=== PATIENT | male | born 1955 | race Caucasian/White ===

== ENCOUNTER 2019-09-19 19:12 | Inpatient (IN) | payer OTHER ==
[~2019-09-19] VITALS: Ht 170.2 cm; Wt 67.0 kg
[2019-09-19 19:16] VITALS: BP 175/95
[2019-09-19] MEDS ORDERED: LIPITOR 20 MG T20 M1 PO (19:22)
[2019-09-19] MEDS ORDERED: PREDNISONE 10 M10 MG PO (19:22)
[2019-09-19] MEDS ORDERED: LISINOPRIL2.5 MG PO (19:22)
[2019-09-19] MEDS ORDERED: ASA81BEC PO (19:23)
[2019-09-19 19:51] LABS: ABSOLUTE BASOPHILS 0.1 thou/uL (0.0-0.2); ABSOLUTE EOSINOPHILS 0.2 thou/uL (0.0-0.7); ABSOLUTE LYMPHOCYTES 2.2 thou/uL (0.8-5.3); ABSOLUTE MONOCYTES 1.3 thou/uL (0.0-1.2); ABSOLUTE NEUTROPHILS 8.6 thou/uL (1.6-8.1); BASOPHILS 0.8 %; EOSINOPHILS 1.8 %; HEMATOCRIT 42.8 % (42.0-52.0); HEMOGLOBIN 14.6 gm/dL (14.0-18.0); LYMPHOCYTES 17.5 %; MCH 31.1 pg (26.0-34.0); MCV 91.4 fL (80.0-100.0); MONOCYTES 10.7 %; MPV 7.7 fl. (7.2-11.1); NUCLEATED RBCS 0 /100WBC; PLATELET COUNT* 368 thou/uL (150-400); POLYS 69.2 %; RBC 4.68 mil/uL (4.50-6.00); RDW-CV 14.2 % (10.5-14.5); WBC 12.5 thou/uL (4.0-11.0)
[2019-09-19 19:56] LABS: CALCIUM 8.7 mg/dL (8.5-10.1); POTASSIUM 3.4 mmol/L (3.5-5.1)
[2019-09-19 19:59] LABS: INR 1.1; PROTIME 11.7 Seconds (9.20-11.50)
[2019-09-19 20:07] LABS: ALBUMIN 3.3 g/dL (3.4-5.0); TOTAL BILIRUBIN 0.3 mg/dL (<0.1-1.0); TOTAL PROTEIN 7.7 g/dL (6.4-8.2)
[2019-09-19 20:56] LABS: BE -0.9 mmol/L (-2 to +3); PCO2 38.5 mmHg (35.0-45.0); PO2 72.5 mmHg (75.0-100.0); pH 7.404 (7.340-7.450)
[2019-09-19 22:15] VITALS: BP 145/82
[2019-09-19 23:00] VITALS: BP 145/86
[2019-09-20 04:41] VITALS: BP 143/78
[2019-09-20 08:00] VITALS: BP 142/94
[2019-09-20 12:07] VITALS: BP 119/86
[2019-09-20 12:20] LABS: ABSOLUTE MONOCYTES 0.8 thou/uL (0.0-1.2); ABSOLUTE NEUTROPHILS 9.2 thou/uL (1.6-8.1); BASOPHILS 0.2 %; HEMATOCRIT 41.2 % (42.0-52.0); HEMOGLOBIN 14.1 gm/dL (14.0-18.0); MCH 31.4 pg (26.0-34.0); MCHC 34.3 g/dL (28.0-37.0); MCV 91.6 fL (80.0-100.0); MONOCYTES 6.9 %; MPV 7.8 fl. (7.2-11.1); NUCLEATED RBCS 0 /100WBC; PLATELET COUNT* 347 thou/uL (150-400); POLYS 83.9 %
[2019-09-20 12:38] LABS: CALCIUM 8.8 mg/dL (8.5-10.1); CREATININE 0.8 mg/dL (0.6-1.3); POTASSIUM 3.9 mmol/L (3.5-5.1)
[2019-09-20 19:50] VITALS: BP 110/68
[2019-09-20 23:57] VITALS: BP 126/68
[2019-09-21 06:31] LABS: INFLUENZA A ANTIGEN Negative (Negative); INFLUENZA B ANTIGEN Negative (Negative)
[2019-09-21 08:00] VITALS: BP 119/74
--- NOTE | 2019-09-21 10:32 | EKG ---
[place] [address] ELECTROCARDIOGRAM REPORT Name: VAUGHN MARTÍNEZ Room: [address] ADM IN M.R.#: [id number] Admission: 09/19/19 Attend Phys: Mateusz Larson Discharge: Date of : 59 Report #: [id number] THIS REPORT FOR: //name// [facility] ED Test Date: 2019-09-19 Test Time: 19:20:11 Pat Name: VAUGHN MAURICIO Department: Room: [facility] Gender: M Corporate Law Specialist: [place] : 1955 Requested By: Sejal Hooks Order Number: [id number] MD: Miguel Lemus Measurements Intervals [place] Rate: 110 P: 84 [place]: 153 QRS: 78 QRSD: 90 T: 80 QT: 332 QTc: 450 Interpretive Statements Sinus tachycardia Biatrial enlargement No previous ECG available for comparison Electronically Signed On 09-21-2019 10:32:27 RESEARCH CHEMIST by Miguel Lemus [email or web address] <ELECTRONICALLY SIGNED> By: Dimitris Lemus MD, [facility] 09/21/19 1032 19 19 Dimitris Lemus MD, FACC /EPI
[2019-09-21 12:53] VITALS: BP 107/64
[2019-09-21 18:29] VITALS: BP 97/62
[2019-09-21 19:45] VITALS: BP 122/67
[2019-09-22 07:26] LABS: HEMATOCRIT 41.4 % (42.0-52.0); HEMOGLOBIN 14.1 gm/dL (14.0-18.0); MCH 31.1 pg (26.0-34.0); MCHC 34.1 g/dL (28.0-37.0); MCV 91.2 fL (80.0-100.0); MPV 7.4 fl. (7.2-11.1); NUCLEATED RBCS 0 /100WBC; PLATELET COUNT* 360 thou/uL (150-400); RBC 4.53 mil/uL (4.50-6.00); RDW-CV 14.3 % (10.5-14.5); WBC 18.8 thou/uL (4.0-11.0)
[2019-09-22 08:19] LABS: ABSOLUTE LYMPHOCYTES 1.3 thou/uL (0.8-5.3); ABSOLUTE MONOCYTES 0.4 thou/uL (0.0-1.2); ABSOLUTE NEUTROPHILS 17.1 thou/uL (1.6-8.1)
[2019-09-22 08:20] LABS: PLATELET ESTIMATE ADEQUATE
[2019-09-22 08:32] LABS: CALCIUM 8.5 mg/dL (8.5-10.1); POTASSIUM 4.3 mmol/L (3.5-5.1)
[2019-09-22 16:00] VITALS: BP 143/74
--- NOTE | 2019-09-22 19:44 | CON ---
[address] [address] CONSULTATION Name: VAUGHN MARTÍNEZ Room: [address] IN M.R.#: [id number] Admission: 09/19/19 Attend Phys: Mateusz Larson Discharge: Date of : 59 Report #: [id number] THIS REPORT FOR: //name// CC: Mateusz Loving DATE OF SERVICE: 09/21/2019 I was asked to see this 64-year-old gentleman for acute respiratory failure, acute exacerbation of COPD. HISTORY OF PRESENT ILLNESS: He has history of more than 165-bogw-byfx smoking, continues to smoke 2 packs per day. He has had increased shortness of breath, cough and wheezing since mid August, did receive a short course of antibiotic and steroid. He was brought to the Emergency Room for increased shortness of breath and hypoxemia. He does have cough with green sputum production. He has had wheezing. He denies fever. He denies chest pain. PAST MEDICAL HISTORY: COPD, hypertension, and hypercholesterolemia. MEDICATIONS: Currently, he is on DuoNeb every 4 hours, aspirin, Lipitor, Pulmicort, Mucinex, lisinopril, Solu-Medrol 62.5 mg every 8 hours, nicotine patch, and lisinopril. ALLERGIES: No known drug allergies. SOCIAL HISTORY: History of more than 797-werv-eilz smoking. Continues to smoke 2 packs per day. He is a truck driver flatbed. FAMILY HISTORY: His mother of lung cancer in her 50s. REVIEW OF SYSTEMS: As mentioned as above. He used to be on Symbicort and Spiriva, stopped using Spiriva. He has not used Symbicort regularly. He is on albuterol p.r.n. Four years ago when he was in [place], he was told he has lung nodules. Other systems are otherwise negative. PHYSICAL EXAMINATION: GENERAL: He is not in distress. He is on 2 liters of oxygen. VITAL SIGNS: His O2 saturation is 93%, respiratory rate 20, heart rate 100, blood pressure 126/68, and temperature 37. HEENT: Normocephalic, atraumatic. Pupils equal, round, reactive to light. Throat is clear. Nose is clear. NECK: There is no JVD, lymphadenopathy or thyromegaly. CARDIOVASCULAR: Regular rate and rhythm. PMI is not displaced. Distant heart sounds. CHEST INSPECTION: There are diminished breath sounds. [place] [address] CONSULTATION Name: VAUGHN MARTÍNEZ Room: [address]#: [id number] Admission: 09/19/19 Attend Phys: Mateusz Larson Discharge: Date of : 59 Report #: [id number] Percussion is within normal limit. ABDOMEN: Soft. Bowel sounds are good. There is no mass. EXTREMITIES: There is no edema. LYMPHATICS: There is no lymphadenopathy. NEUROLOGIC: Alert and oriented. SKIN: Chronic changes. LABORATORY DATA: I reviewed the following lab data Influenza A and B negative. WBC on admission 12.5, yesterday 11, hemoglobin 14.6, and platelets 368. Sodium 139, potassium 3.9, chloride 102, CO2 of 30, glucose 169, BUN 12, creatinine 0.8. Lactic acid 0.8. Troponin less than 0.06. BNP 109. Chest x-ray shows bilateral hyperinflation, no infiltrate. IMPRESSION: 1. Acute respiratory failure secondary to acute exacerbation of chronic obstructive pulmonary disease and acute bronchitis, rule out thromboembolic disease versus others. 2. Acute exacerbation of chronic obstructive pulmonary disease. 3. Acute bronchitis. 4. History of lung nodules. 5. Tobacco habituation. 6. Hypertension. 7. Hyperlipidemia. PLAN AND RECOMMENDATIONS: 1. Titrate FiO2 to keep O2 saturation 92%. He would require a 6-minute walk at the time of discharge. 2. Continue bronchodilator. 3. Continue inhaled corticosteroid. 4. He should continue Symbicort 160 two puffs b.i.d. and Spiriva daily as an outpatient and use albuterol p.r.n. 5. I had a long discussion with him regarding the smoking cessation. I have advised him to stop smoking forever. 6. I will do a CT angiogram. 7. I will change Solu-Medrol to 40 mg IV every 8. 8. I will start Rocephin. 9. He would require followup with business systems administrator. 10. The findings and recommendations were discussed with the patient and attending physician, Dr. Payne. I have answered all of the patient's questions. He understood and agreed to proceed with the plan. [facility] [address] [facility] [place] [address] CONSULTATION Name: VAUGHN MARTÍNEZ Room: [address] IN M.R.#: [id number] Admission: 09/19/19 Attend Phys: Mateusz Larson Discharge: Date of : 59 Report #: [id number] Thank you very much for allowing me to participate in care of this very nice gentleman. <ELECTRONICALLY SIGNED> By: Arnie Tsai MD 09/22/19 1944 1137 Armando Tsai MD /nt
[2019-09-22 19:45] VITALS: BP 140/78
[2019-09-23 07:52] VITALS: BP 104/76
[2019-09-23 16:46] VITALS: BP 114/69
[2019-09-23 19:40] VITALS: BP 134/72
[2019-09-24 04:42] LABS: ABSOLUTE BASOPHILS 0.1 thou/uL (0.0-0.2); ABSOLUTE LYMPHOCYTES 1.9 thou/uL (0.8-5.3); ABSOLUTE MONOCYTES 1.3 thou/uL (0.0-1.2); ABSOLUTE NEUTROPHILS 11.5 thou/uL (1.6-8.1); BASOPHILS 0.5 %; EOSINOPHILS 0.2 %; HEMATOCRIT 40.4 % (42.0-52.0); HEMOGLOBIN 13.5 gm/dL (14.0-18.0); LYMPHOCYTES 12.7 %; MCH 30.7 pg (26.0-34.0); MCHC 33.5 g/dL (28.0-37.0); MCV 91.7 fL (80.0-100.0); MPV 7.3 fl. (7.2-11.1); NUCLEATED RBCS 0 /100WBC; PLATELET COUNT* 323 thou/uL (150-400); POLYS 77.6 %; RBC 4.41 mil/uL (4.50-6.00); RDW-CV 14.4 % (10.5-14.5); WBC 14.8 thou/uL (4.0-11.0)
[2019-09-24 04:56] LABS: CALCIUM 7.8 mg/dL (8.5-10.1); CREATININE 0.9 mg/dL (0.6-1.3); POTASSIUM 3.7 mmol/L (3.5-5.1)
[2019-09-24 08:10] VITALS: BP 123/80
[2019-09-24 12:22] VITALS: BP 123/80
[2019-09-24] MEDS ORDERED: SPIRIVA18 MCG INH (12:28)
[2019-09-24] MEDS ORDERED: PROAIR HFA8.5 GM INH (12:28)
[2019-09-24] MEDS ORDERED: SYMBICORT160 MCG/4. INH (12:28)
[2019-09-24] MEDS ORDERED: MUCINEX600 MG PO (12:35)
[2019-09-24] MEDS ORDERED: VENTOLIN HFA 1818 GM INH (12:53)
[2019-09-24] MEDS ORDERED: AUGMENTIN 875-1 EACH PO (12:56)
[2019-09-24] MEDS ORDERED: PROTONIX40 M2 PO (12:58)
== END 2019-09-24 15:35 | disposition home or self-care (01) | DRG 177 ==
LOC: M.ERS 19:12 → M.3W 20:39 → M.TBA-ER 20:39 → M.2W 22:40 → M.3W 09-21 18:20
PROVIDERS: Emergency Medicine; Internal Medicine; Internal Medicine Pulmonary Disease; ADMIT Family Medicine
DX: J15.6 Pneumonia due to other Gram-negative bacteria (principal); J96.01 Acute respiratory failure with hypoxia; R65.10 Systemic inflammatory response syndrome (SIRS) of non-infectious origin without acute organ dysfunction; J43.9 Emphysema, unspecified; I10 Essential (primary) hypertension; E78.00 Pure hypercholesterolemia, unspecified; J20.9 Acute bronchitis, unspecified; F19.980 Other psychoactive substance use, unspecified with psychoactive substance-induced anxiety disorder; E78.5 Hyperlipidemia, unspecified; F17.210 Nicotine dependence, cigarettes, uncomplicated; Z80.41 Family history of malignant neoplasm of ovary; Z80.1 Family history of malignant neoplasm of trachea, bronchus and lung; Z91.19 Patient's noncompliance with other medical treatment and regimen; Z79.899 Other long term (current) drug therapy

== ENCOUNTER 2019-10-23 10:04 | Emergency (ER) | payer OTHER ==
[~2019-10-23] VITALS: Ht 170.2 cm; Wt 70.3 kg
[~2019-10-23 10:04] MED LIST: ASA81BEC PO; AUGMENTIN 875-1 EACH PO; LIPITOR 20 MG T20 M1 PO; LISINOPRIL2.5 MG PO; MUCINEX600 MG PO; PREDNISONE 10 M10 MG PO; PROAIR HFA8.5 GM INH; PROTONIX40 M2 PO; SPIRIVA18 MCG INH; SYMBICORT160 MCG/4. INH; VENTOLIN HFA 1818 GM INH
[2019-10-23 10:49] LABS: ABSOLUTE BASOPHILS 0.1 thou/uL (0.0-0.2); ABSOLUTE EOSINOPHILS 0.2 thou/uL (0.0-0.7); ABSOLUTE LYMPHOCYTES 2.3 thou/uL (0.8-5.3); ABSOLUTE MONOCYTES 0.7 thou/uL (0.0-1.2); ABSOLUTE NEUTROPHILS 5.1 thou/uL (1.6-8.1); EOSINOPHILS 2.2 %; HEMATOCRIT 42.9 % (42.0-52.0); HEMOGLOBIN 14.6 gm/dL (14.0-18.0); LYMPHOCYTES 27.1 %; MCH 30.9 pg (26.0-34.0); MCV 90.8 fL (80.0-100.0); MONOCYTES 8.5 %; MPV 6.8 fl. (7.2-11.1); NUCLEATED RBCS 0 /100WBC; PLATELET COUNT* 357 thou/uL (150-400); POLYS 61.2 %; RBC 4.73 mil/uL (4.50-6.00); RDW-CV 14.5 % (10.5-14.5); WBC 8.3 thou/uL (4.0-11.0)
[2019-10-23 10:59] LABS: CALCIUM 8.6 mg/dL (8.5-10.1); CREATININE 0.9 mg/dL (0.6-1.3); POTASSIUM 4.2 mmol/L (3.5-5.1)
[2019-10-23 11:04] LABS: ALBUMIN 3.2 g/dL (3.4-5.0); TOTAL BILIRUBIN 0.6 mg/dL (<0.1-1.0); TOTAL PROTEIN 7.1 g/dL (6.4-8.2)
[2019-10-23] MEDS ORDERED: PREDNISONE 5 MG5 MG PO (11:17)
[2019-10-23] MEDS ORDERED: VALACYCLOVIR500 MG PO (11:17)
--- NOTE | 2019-10-23 11:22 | EKG ---
[place] [address] ELECTROCARDIOGRAM REPORT Name: VAUGHN MARTÍNEZ Room: [facility]#: [id number] Admission: 10/23/19 Attend Phys: Discharge: Date of : 59 Date of Service: 10/23/19 1051 Report #: [id number] THIS REPORT FOR: cc: Jhonny Lewis MD, Tuongvan T. MD Holkins, John M. MD [facility] ~ THIS REPORT FOR: //name// [facility] ED Test Date: 2019-10-23 Test Time: 10:51:07 Pat Name: VAUGHN MARTÍNEZ Department: Room: Gender: M [employer] Agent: [facility] : 1955 Requested By: Robby Morgan Order Number: [id number] MD: Alfonso Gray Measurements Intervals [place] Rate: 87 P: 79 [place]: 160 QRS: 57 QRSD: 87 T: 68 QT: 371 QTc: 447 Interpretive Statements Sinus rhythm Compared to ECG 09/19/2019 19:20:11 Sinus tachycardia no longer present Atrial abnormality no longer present Electronically Signed On 10-23-2019 11:21:20 PROPAGATOR LABORER by Alfonso Gray [email or web address] <ELECTRONICALLY SIGNED> By: Alfonso Gray MD, FACC 10/23/19 1121 1051 1051 Alfonso Gray MD, FAC /EPI
[2019-10-23 11:33] VITALS: BP 133/84
== END 2019-10-23 11:33 | disposition home or self-care (01) ==
LOC: M.ERS 10:04
PROVIDERS: Emergency Medicine
DX: G51.0 Bell's palsy (principal); J44.9 Chronic obstructive pulmonary disease, unspecified; I10 Essential (primary) hypertension; E78.00 Pure hypercholesterolemia, unspecified; Z90.49 Acquired absence of other specified parts of digestive tract

== ENCOUNTER 2019-11-15 18:18 | Emergency (ER) | payer OTHER ==
[~2019-11-15] VITALS: Ht 170.2 cm; Wt 72.6 kg
[~2019-11-15 18:18] MED LIST changes: +PREDNISONE 5 MG5 MG PO; +VALACYCLOVIR500 MG PO
[2019-11-15] MEDS ORDERED: METFORMIN HCL500 M3 (18:31)
[2019-11-15] MEDS ORDERED: KEFLEX500 M2 PO (19:04)
[2019-11-15] MEDS ORDERED: BACTRIM DS TAB1 EACH PO (19:04)
[2019-11-15 19:15] VITALS: BP 112/84
== END 2019-11-15 19:15 | disposition home or self-care (01) ==
LOC: M.ERS 18:18
DX: S40.861A Insect bite (nonvenomous) of right upper arm, initial encounter (principal); L03.113 Cellulitis of right upper limb; J44.9 Chronic obstructive pulmonary disease, unspecified; I10 Essential (primary) hypertension; E78.00 Pure hypercholesterolemia, unspecified; F17.210 Nicotine dependence, cigarettes, uncomplicated; Z90.49 Acquired absence of other specified parts of digestive tract; W57.XXXA Bitten or stung by nonvenomous insect and other nonvenomous arthropods, initial encounter; Y93.89 Activity, other specified; Y92.89 Other specified places as the place of occurrence of the external cause; Y99.8 Other external cause status

== ENCOUNTER → 2020-01-01 | Outpatient (CLI) | payer OTHER ==
[~2020-01-01] MED LIST changes: +BACTRIM DS TAB1 EACH PO; +KEFLEX500 M2 PO; +METFORMIN HCL500 M3
== END ==
LOC: M.CT 07:22
DX: J44.9 Chronic obstructive pulmonary disease, unspecified (principal); R93.89 Abnormal findings on diagnostic imaging of other specified body structures; Z72.0 Tobacco use

== ENCOUNTER 2020-04-03 09:17 | Emergency (ER) | payer OTHER ==
[~2020-04-03] VITALS: Ht 170.2 cm; Wt 63.5 kg
[2020-04-03] MEDS ORDERED: DOXYCYCLINE 10100 M2 PO (09:51)
[2020-04-03 10:09] VITALS: BP 168/93
== END 2020-04-03 10:10 | disposition home or self-care (01) ==
LOC: M.ERS 09:17
DX: L03.113 Cellulitis of right upper limb (principal); J44.9 Chronic obstructive pulmonary disease, unspecified; I10 Essential (primary) hypertension; E78.00 Pure hypercholesterolemia, unspecified; Z90.49 Acquired absence of other specified parts of digestive tract